=== PATIENT | male | born 1935 | race Caucasian/White ===

== ENCOUNTER 2016-11-06 18:07 | Emergency (ER) | payer MEDICARE ==
[2016-11-06 18:10] VITALS: BP 162/86; PULSE 79; RESP 24; TEMP 97.8; O2SAT 95
--- NOTE | 2016-11-06 18:24 | PD ---
Physical Exam Time Seen by Provider: 18:23 Narrative 81 y/o male here with a head injury after hitting his head in the shower. + Dizziness, h/a. Vital signs reviewed. Seen at triage desk. Awaiting bed placement. Data Data Last Documented VS Vital Signs Date Time Temp Pulse Resp B/P Pulse Ox O2 Delivery O2 Flow Rate FiO2 11/06/16 18:10 97.8 79 24 162/[address] [facility] Medical Record Reviewed: Yes Supervised Visit with NAFISA: Devante Junior Nov 06, 2016 18:23
--- NOTE | 2016-11-06 20:22 | RADRPT ---
EXAM DATE/TIME: 11/06/2016 20:12 [place] COMPARISON: No previous studies available for comparison. INDICATIONS : Trauma, hit head in shower today. RADIATION DOSE: 56.35 CTDIvol (mGy) MEDICAL HISTORY : Myocardial infarction. SURGICAL HISTORY : cardiac stent placement ENCOUNTER: Initial ACUITY: 1 day PAIN SCALE: 3/10 LOCATION: Bilateral head TECHNIQUE: Multiple contiguous axial images were obtained of the head. Using automated exposure control and adj ustment of the mA and/or kV according to patient size, radiation dose was kept as low as reasonably a chievable to obtain optimal diagnostic quality images. DICOM format image data is available electro nically for review and comparison. FINDINGS: Atherosclerotic calcification of the vertebral arteries and internal carotid arteries. There is mild atrophy and mild periventricular white matter disease. No hemorrhage, infarct, or mass. No fractures. CONCLUSION: No acute disease. Evaristo Lyles MD on November 06, 2016 at 20:20 Board Certified Radiologist. This report was verified electronically.
[2016-11-06 20:42] VITALS: BP 171/91; PULSE 85; RESP 18; TEMP 98.1; O2SAT 100
[2016-11-06] MEDS ORDERED: ASPI81CH CHEW (20:54)
[2016-11-06] MEDS ORDERED: LIPI20TA PO (20:54)
[2016-11-06] MEDS ORDERED: NAME5TAB2 PO (20:54)
[2016-11-06 20:57] VITALS: BP 151/93
--- NOTE | 2016-11-06 20:57 | PD ---
HPI Chief Complaint: Head Injury Time Seen by Provider: 20:41 Travel History International Travel<30 days: No Contact w/Intl Traveler<30days: No Traveled to known affect area: No History of Present Illness HPI 81-year-old male here with his son whom he lives with for evaluation of a head injury. The patient was in the shower at around 5:30 PM today when he stood up and struck his posterior scalp on the shower head. He did not lose consciousness. Son noticed a significant amount of swelling to the patient's posterior scalp, became concerned. He takes aspirin 81 mg daily. No other antiplatelets or anticoagulants. He denies any other injuries. According to the patient's son, he is acting like his usual self. [facility] Past Medical History Cardiovascular Problems: Yes (CO,STENT) Dementia: Yes Myocardial Infarction: Yes (with stent placement) Past Surgical History Other Surgery: Yes Social History Alcohol Use: No Tobacco Use: No Substance Use: No Allergies-Medications (Allergen,Severity, Reaction): Coded Allergies: Penicillin (Verified Allergy, Severe, 11/06/16) Review of Systems Except as stated in HPI: all other systems reviewed are Neg Physical Exam Narrative GENERAL: Pleasant, well-developed, well-nourished, awake, alert, sitting comfortably on stretcher, no apparent distress SKIN: Focused skin assessment warm/dry. No lacerations, abrasions, or ecchymosis. HEAD: Normocephalic. Posterior scalp with moderate sized hematoma without any skin breaks. EYES: Pupils equal, round, 3 mm, reactive to light. EOMI. No scleral icterus. No injection or drainage. ENT: No nasal bleeding or discharge. Mucous membranes pink and moist. NECK: Trachea midline. No JVD. No midline vertebral step-off or tenderness. MUSCULOSKELETAL: No obvious deformities. No clubbing. No cyanosis. No edema. NEUROLOGICAL: Awake and alert. No obvious cranial nerve deficits. Motor grossly within normal limits. Normal speech. No focal deficits. PSYCHIATRIC: Appropriate mood and affect; insight and judgment normal. Data Data Last Documented VS Vital Signs Date Time Temp Pulse Resp B/P Pulse Ox O2 Delivery O2 Flow Rate FiO2 11/06/16 20:42 98.1 85 18 171/91 100 11/06/16 18:[address] Brain W/O Iv Contrast(Rout) (11/06/16 ) MDM Medical Decision Making Medical Screen Exam Complete: Yes Emergency Medical Condition: Yes Differential Diagnosis Intracranial trauma, closed head injury, concussion Narrative Course Vital signs reviewed. The patient is very well-appearing. Sitting on the edge of the stretcher. GCS is 15. No focal deficits. He does have a moderate sized posterior scalp hematoma. CT head: No acute disease. The patient and the patient's son were made aware of CT head findings. Patient is stable for discharge home with outpatient follow-up with a primary care physician this week. Son informed on when to bring the patient back to the emergency department. He verbalizes understanding and agreement with plan. Diagnosis Primary Impression: Closed head injury Qualified Code: S09.90XA - Closed head injury, initial encounter Referrals: Primary Care Physician 3 days Additional Instructions: Follow-up with a primary care physician this week. Return to the emergency department for worsening symptoms or any other concerns as discussed. Disposition: 01 DISCHARGE HOME Condition: Stable Grzegorz Levin MD Nov 06, 2016 20:57
== END 2016-11-06 21:37 | disposition home or self-care (01) ==
LOC: NEPD 18:07
DX: S09.90XA Unspecified injury of head, initial encounter (principal); W22.8XXA Striking against or struck by other objects, initial encounter
CPT/HCPCS: 70450; 99284